=== PATIENT | female | born 1970 | race Caucasian/White ===

== ENCOUNTER 2021-11-20 17:56 | Emergency (ER) | payer BC ==
[~2021-11-20] VITALS: Ht 180.3 cm; Wt 125.0 kg
[2021-11-20] MEDS ORDERED: triamcinolone acetonide 40mg/ml inj IM ONE (18:35)
[2021-11-20] MEDS ORDERED: HYDR28CR14 TOP (18:44)
[2021-11-20 20:09] VITALS: BP 168/102
== END 2021-11-20 18:53 | disposition home or self-care (01) ==
LOC: ER 17:56 → EEVIPCON 17:56 → ER 18:53
DX: L29.9 Pruritus, unspecified (principal); Z88.1 Allergy status to other antibiotic agents; Z79.899 Other long term (current) drug therapy
CPT/HCPCS: 96372; 99283; J3301